=== PATIENT | female | born 1990 | race Hispanic/Latino ===

== ENCOUNTER 2019-04-26 20:31 | Emergency (ER) | payer BC, OTHER ==
[2019-04-26 21:17] LABS: APPEARANCE,URINE Clear (CLEAR); BILIRUBIN,URINE Negative (NEGATIVE); COLOR,URINE Yellow (YELLOW); GLUCOSE, URINE (UA) Negative (NEGATIVE); KETONES,URINE Negative (NEGATIVE); LEUKOCYTE ESTERASE ,URINE Trace (NEGATIVE); NITRATE,URINE Negative (NEGATIVE); OCCULT BLOOD,URINE Negative (NEGATIVE); PH,URINE 6.5 (5.0-8.0); PROTEIN,URINE Negative (NEGATIVE)
[2019-04-26 21:51] LABS: BACTERIA,URINE Few /HPF (None Seen); RBC,URINE None Seen /HPF (0-1)
== END 2019-04-26 22:16 | disposition home or self-care (01) ==
LOC: EDH 20:31
DX: O23.41 Unspecified infection of urinary tract in pregnancy, first trimester (principal); Z3A.12 12 weeks gestation of pregnancy; Z98.890 Other specified postprocedural states
CPT/HCPCS: 81001

== ENCOUNTER 2019-10-18 09:00 | Inpatient (IN) | payer BC ==
[~2019-10-18] VITALS: Ht 160 cm; Wt 84.4 kg
[2019-10-24] VITALS (17 sets, daily range): BP systolic 89–120; BP diastolic 42–78
[2019-10-24] MEDS ORDERED: CEFAZOLIN SODIUM 1 GM VIAL IVP PRN (07:30)
[2019-10-24 07:41] LABS: HEMATOCRIT 33.7 % (36-48); MEAN CORPUSCULAR HEMOGLOBIN 24.3 pg (27.0-33.0); MEAN CORPUSCULAR HGB CONC 30.6 g/dL (32.0-36.0); MEAN CORPUSCULAR VOLUME 79.5 fL (79-99); PLATELET COUNT (AUTO) 174 K/uL (130-400); RED BLOOD CELL COUNT(AUTO) 4.24 MIL/uL (4.00-5.50); RED CELL DISTRIBUTION WIDTH 16.4 % (11.0-15.5); WHITE BLOOD COUNT (AUTO) 7.4 K/uL (4.8-10.8)
[2019-10-24] MEDS ORDERED: OXYTOCIN-LR 20 UNITS/1000 ML 1,000 ML IV ONE (07:55)
[2019-10-24] MEDS ORDERED: OXYTOCIN 10 USP UNITS/ML ONE (08:05)
[2019-10-24] MEDS ORDERED: DURAMORPH PF1 MG/ML 10ML AMP IV ONE (08:05)
[2019-10-24] MEDS ORDERED: CEFAZOLIN SODIUM 1 GM VIAL IVP ONE (08:55)
[2019-10-24] MEDS ORDERED: OXYTOCIN-LR 20 UNITS/1000 ML 1,000 ML IV PRN (10:30)
[2019-10-24] MEDS ORDERED: SODIUM CHLORIDE 0.9% 10 ML VIAL IVP PRN (10:30)
[2019-10-24] MEDS ORDERED: MEPERIDINE-PF 75 MG/ML SYG IM PRN (10:30)
[2019-10-24] MEDS ORDERED: PROMETHAZINE HCL 25 MG/ML 1ML AMPULE IM PRN (10:30)
[2019-10-24] MEDS ORDERED: EPHEDRINE SULFATE 50 MG/ML AMPULE IVP PRN (11:15)
[2019-10-24] MEDS ORDERED: ONDANSETRON HCL 4 MG/2 ML VIAL IVP PRN (11:15)
[2019-10-24] MEDS ORDERED: DiphenhydrAMINE HCL 50 MG/ML VIAL IVP PRN (11:15)
[2019-10-24] MEDS ORDERED: PNV1TABL17 PO (12:17)
[2019-10-24] MEDS: DEXTROSE 5 %-0.45 % NACL 1,000 ML IV PRN (21:16)
--- NOTE | 2019-10-25 03:00 | NUR ---
Activity; Rose care done noted with small blood clots as big as a gulf ball. , Fundus firm with massage at the level of umbilicus. 4 Steri strips applied at the middle of the incision that looks fresh no active bleeding noted. Patient assisted to get up in bed & able to dangle her legs.
--- NOTE | 2019-10-25 03:10 | NUR ---
Abdominal; Abdominal Binder applied. Patient advice to call for help if needed. She verbalizes understanding.
[2019-10-25] MEDS: DEXTROSE 5 %-0.45 % NACL 1,000 ML IV PRN (03:25)
[2019-10-25 04:05] VITALS: BP 111/64
[2019-10-25 07:02] LABS: HEMATOCRIT 26.1 % (36-48); MEAN CORPUSCULAR HEMOGLOBIN 24.4 pg (27.0-33.0); MEAN CORPUSCULAR HGB CONC 30.7 g/dL (32.0-36.0); MEAN CORPUSCULAR VOLUME 79.6 fL (79-99); RED BLOOD CELL COUNT(AUTO) 3.28 MIL/uL (4.00-5.50); RED CELL DISTRIBUTION WIDTH 16.5 % (11.0-15.5); WHITE BLOOD COUNT (AUTO) 7.3 K/uL (4.8-10.8)
--- NOTE | 2019-10-25 07:05 | NUR ---
DR SCHAFER ROUNDING ON PATIENT. INCISION ASSESSED AT BEDSIDE. DISCHARGE POC DISCUSSED WITH PATIENT. QUESTIONS INVITED AND ANSWERED. PATIENT OKAY TO BE DISCHARGED TODAY.
[2019-10-25 07:21] VITALS: BP 114/78
[2019-10-25] MEDS ORDERED: ACETAMINOPHEN EXTRA STRENGTH 500 MG TABLET PO PRN (07:45)
[2019-10-25] MEDS ORDERED: HYDROCODONE/ACETAMINOPHEN 5/325 MG TAB PO PRN (07:45)
[2019-10-25] MEDS ORDERED: IBUPROFEN 600 MG TABLET PO PRN (07:45)
[2019-10-25] MEDS ORDERED: SIMETHICONE 80 MG TAB.CHEW PO PRN (07:45)
[2019-10-25] MEDS ORDERED: ACETAMINOPHEN-CODEINE 300/30MG TAB PO PRN (07:45)
[2019-10-25] MEDS ORDERED: BISACODYL 10 MG SUPP.RECT RC PRN (07:45)
[2019-10-25] MEDS ORDERED: DIPH,PERTUSS(ACELL),TET VAC/PF 0.5 ML VIAL IM SCH (07:45)
--- NOTE | 2019-10-25 08:10 | NUR ---
assisted to the bathroom, voided 500ml , pericare done, assisted back to bed. pt tolerated well. Addendum: 10/25/19 at 0818 by HORTENSIA FREGOSO RN Amended: Links added.
[2019-10-25] MEDS ORDERED: DOCUSATE SODIUM 100 MG CAP PO SCH (09:00)
[2019-10-25 10:13] LABS: HEPATITIS Bs ANTIGEN SCREEN P Negative (Negative)
[2019-10-25] MEDS ORDERED: IBUPROFEN 800 MG TAB PO SCH (10:30)
[2019-10-25 11:37] VITALS: BP 108/75
== END 2019-10-25 13:25 | disposition home or self-care (01) | DRG 786 ==
LOC: EDSTATUS 09:00 → LDH 10-24 05:18 → WSH 10-24 11:05
PROVIDERS: ADMIT Specialist; ATTEND Specialist
PROC: 0UCC0ZZ Extirpation of Matter from Cervix, Open Approach (ICD-10-PCS; 2019-10-24)
PROC: 3E0234Z Introduction of Serum, Toxoid and Vaccine into Muscle, Percutaneous Approach (ICD-10-PCS; 2019-10-24)
PROC: 10D00Z1 Extraction of Products of Conception, Low, Open Approach (ICD-10-PCS; principal; 2019-10-24 09:30)
DX: O34.211 Maternal care for low transverse scar from previous cesarean delivery (principal); O34.33 Maternal care for cervical incompetence, third trimester; O99.43 Diseases of the circulatory system complicating the puerperium; O69.1XX0 Labor and delivery complicated by cord around neck, with compression, not applicable or unspecified; R00.0 Tachycardia, unspecified; Z37.0 Single live birth; Z23 Encounter for immunization; Z3A.39 39 weeks gestation of pregnancy; Z90.721 Acquired absence of ovaries, unilateral; Z90.79 Acquired absence of other genital organ(s)
CPT/HCPCS: 36415; 59510; 85027; 86592; 86850; 86900; 86901; 87340; 90715; A4344; G0378; J0690; J1200; J2274; J2590; J7120; U0003